=== PATIENT | female | born 2000 | race Caucasian/White ===

== ENCOUNTER 2023-11-25 10:22 | Inpatient (IN) | payer OTHER ==
[~2023-11-25] VITALS: Ht 170.2 cm; Wt 110.9 kg
[2023-11-25] VITALS (11 sets, daily range): BP systolic 117–131; BP diastolic 67–81; PULSE 74–87; TEMP 98–99
--- NOTE | 2023-11-25 11:15 | NUR ---
1030 PATIENT HERE FROM OFFICE WITH COMPLAINTS OF CONTRACTIONS GETTING MORE INTENSE. SVE IN OFFICE STRETCHY 4. EFM ON GHT 135 BABY VERY ACTIVE. CONTRACTIONS EVERY 2-3 MIN PALPATE FIRM. PATIENT REFUSES EPIDURAL, ANTIBIOTICS FOR GBS, PITOCIN, REFUSES VIT K, ERYTHROMYCIN OINTMENT, HEP B FOR BABY. DENIES OTHER NEEDS. ASSESSMENT COMPLETED AT THIS TIME. WILL RECHECK A HOUR FROM ODDICR CHECK.
--- NOTE | 2023-11-25 11:27 | NUR ---
1115 SVE /1 SOME BLOODY SHOW NOTED ON GLOVE. FHT 130 WITH EARLIES NOTED WITH CONTRACTIONS. REPORT GIVEN TO Tami NICHOLSON RN TO ASSUME CARE AT THIS TIME
[2023-11-25] MEDS ORDERED: LR 1,000 ML IV SCH (11:30)
[2023-11-25] MEDS ORDERED: Penicillin G Potassium 5,000,000 UNITS in NS 100 ML IV ONE (11:30)
--- NOTE | 2023-11-25 12:22 | NUR ---
1220 PATIENT AND WALKING HALLS AT THIS TIME
[2023-11-25 12:29] LABS: BASO % 0.4 % (0.0-2.0); EOS % 0.4 % (0.0-4.0); GRAN # 6.7 K/mm3 (1.4-6.5); GRAN % 71.8 % (42.2-75.2); HEMATOCRIT 39.3 % (37.0-47.0); HEMOGLOBIN 13.1 g/dl (12.5-16.0); LYMPH # 1.9 K/mm3 (1.2-3.4); LYMPH % 20.6 % (20.0-51.0); MEAN CELL VOLUME 86 fl (80.0-100.0); MEAN CORPUSCULAR HEMOGLOBIN 29 pg (27-31); MEAN CORPUSCULAR HGB CONC 33 g/dl (33.0-37.0); MEAN PLATELET VOLUME 11.1 fl (7.4-10.4); MONO # 0.6 K/mm3 (0.1-0.6); MONO % 6.3 % (1.7-9.3); PLATELET COUNT 204 K/mm3 (130-400); RED BLOOD COUNT 4.56 M/mm3 (4.10-5.30); REDCELL DISTRIBUTION WIDTH-CV 13.2 % (11.5-14.5)
--- NOTE | 2023-11-25 14:13 | NUR ---
Dr. Michaels to bedside to check in with patient. Discussed ROM with pt, she delcines at this time. Consents then discussed with pt, pt verbalizes understanding and signs. Refusals discussed and signed for antibiotics for GBS and Rhogam, provided pt with information regarding RH Isoimmunization and informed pt she may change her mind at any time. Pt verbalized understanding, continues to refuse at this time. Pt provided plan, copies made and placed in her and baby's chart. Pt requesting to move around room and walk around unit, discussed need to monitor FHR for 20 mins every hour. Pt agrees. FHR monitor removed at 1345, pt up and ambulating around room. Pt ambulating halls at 1400.
--- NOTE | 2023-11-25 14:20 | NUR ---
FHR not recorded at this time, pt ambulating in hallway
--- NOTE | 2023-11-25 14:29 | NUR ---
early decel noted at 1316. late decel noted at 1311. dr kelsey on unit at this time, stated that FHR is reassuring at this time
--- NOTE | 2023-11-25 15:25 | NUR ---
Late decels noted at 1452 and 1456, this RN at bedside. SVE with pt permission at 1500, 5-6/100/-1. Membranes intact, bloody show noted. Pt repositioned LL following exam. Late decels resolved.
[2023-11-25] MEDS ORDERED: Penicillin G Potassium 2,500,000 UNITS in NS 100 ML IV SCH (15:30)
--- NOTE | 2023-11-25 17:40 | NUR ---
FHR not monitored at this time, pt ambulating in room
--- NOTE | 2023-11-25 17:42 | NUR ---
Pt back on monitors at 1621. Late decels noted after contractions at 1632, 1640, and 1648. Repositioned pt RL, remained at bedside. Contractions not tracing well at this time, however, late decels resolved. Early decel with contraction at 1720. SVE with pt permission at 1730, 6-7100/0. Pt questions regarding AROM answered, pt still considering this option.
--- NOTE | 2023-11-25 17:42 | NUR ---
FHR not monitored at this time, pt ambulating in room
--- NOTE | 2023-11-25 19:15 | NUR ---
1840: Pt placed on monitors at this time for tracing. Pt standing next to bed for comfort. Pt informed Dr Flor notified of pt wanting to rupture membranes at this time. 1904: Dr Flor at the bedside discussing AROM with pt and spouse. Questions asked and answered. 1908: AROM performed with moderate meconium fluid noted. Pt tolerated fair. 0: Pt tilted slightly to the left for a bit for comfort. Will monitor fetus for a bit longer and then let pt shower.
--- NOTE | 2023-11-25 19:40 | NUR ---
Pt ambulating in hallway at this time for comfort. Spouse at side for support. Pt reporting she is feeling okay at this time and not feeling many ctx.
--- NOTE | 2023-11-25 20:40 | NUR ---
2018: Pt placed on monitors at this time, is standing next to bed for comfort during the ctx. Pt reports needing to move frequently to help with the pain from the ctx. 2034: lets this RN know that the pt is feeling more pressure with the last ctx. Dr Flor to the bedside for ROBBI.
--- NOTE | 2023-11-25 21:50 | NUR ---
2126: Pt placed on monitors, is standing next to the bed rocking back and forth coping with ctx well. Spouse at pt side for support. 2149: Pt off the monitors, in the bathroom.
--- NOTE | 2023-11-25 22:05 | NUR ---
Pt in the bathroom at this time, vomiting into toilet at this time. Bile color emesis noted. Spouse supporting pt. Pt reports to this RN that she is not feeling any pressure or urge to push at this time, just the discomfort from the ctx when she has one. Pt getting into the shower with spouse at her side.
[2023-11-25] MEDS ORDERED: ROPivacaine PF 0.2% 200 ML IV ONE (23:03)
--- NOTE | 2023-11-25 23:15 | NUR ---
Pt on her hands and knees on the bed at this time for comfort during her ctx. RN at bedside attempting to obtain heart tones and ctx pattern. Unable to obtain due to maternal position and movement. RN remains at bedside monitoring maternal and status.
--- NOTE | 2023-11-25 23:30 | NUR ---
Pt sitting upright on the side of the bed at this time for epidural placement. RN at bedside. Unable to determine baseline, accels, or decels during this tracing due to maternal position.
[2023-11-25] MEDS ORDERED: Ondansetron 4 MG/2 ML VIAL IV PRN (23:45)
[2023-11-25] MEDS ORDERED: diphenhydrAMINE 50 MG/ML 1 ML VIAL IV PRN (23:45)
[2023-11-25] MEDS ORDERED: diphenhydrAMINE 25 MG CAP PO PRN (23:45)
[2023-11-25] MEDS ORDERED: Naloxone 0.4 MG/ML VIAL IV PRN (23:45)
[2023-11-25] MEDS ORDERED: ePHEDrine 50 MG/10 ML VIAL IV PRN (23:45)
--- NOTE | 2023-11-25 23:45 | NUR ---
3 minute prolonged late decel observed during this tracing, RN at bedside and repositions pt to her left side to attempt recovery. Good recovery and variability observed and after 7-8 minutes pt repositioned for comfort. Pt reports being comfortable with her epidural at this time. Roles on the unit and aware of decel.
[2023-11-26] VITALS (24 sets, daily range): BP systolic 98–146; BP diastolic 60–81; PULSE 67–123; TEMP 97.8–98.3
--- NOTE | 2023-11-26 | NUR ---
Late and variable decels observed on this tracing. Pt repositioned in an attempt to correct decels. RN unable to determine heart rate baseline due to variability and accels.
--- NOTE | 2023-11-26 00:15 | NUR ---
Pt repositioned to her right side after a late decel. Good recovery observed but another late decel observed while at the bedside and pt repositioned back to her left side. RN remains at bedside.
--- NOTE | 2023-11-26 00:30 | NUR ---
Pt repositioned to her left side with her right leg in a stirrup to facilitate descent. I have difficulty obtaining heart tones due to this position and remain at the bedside monitoring maternal and status.
--- NOTE | 2023-11-26 01:30 | NUR ---
RN at the bedside pushing with pt; due to maternal position, RN having difficulty tracing heart tones. RN remains at bedside during this time.
--- NOTE | 2023-11-26 03:01 | NUR ---
0301: Live male infant delivered via . Infant bulb suctioned and dried by Dr Flor and placed on mothers abdomen. Nursery RN continues to dry as delayed cord clamping is done per parents request. 0310: Cord clamped by Dr Flor and cut by father at this time. then place skin to skin with mother. 0313: Placenta delivered spontaneously. Pt refuses stitches at this time to repair the 2nd degree perineal laceration. Educated on adverse effects from not repairing the laceration and pt verbalizes her understanding.
[2023-11-26] MEDS ORDERED: Mag/Al Hydrox/Simeth Susp 30 ML CUP PO PRN (03:30)
[2023-11-26] MEDS ORDERED: Magnes Hydrox (MOM) 80 MG/ML 30 ML CUP PO PRN (03:30)
[2023-11-26] MEDS ORDERED: Acetaminophen 500 MG TAB PO SCH (03:30)
[2023-11-26] MEDS ORDERED: Naloxone 0.4 MG/ML VIAL IV PRN (03:30)
[2023-11-26] MEDS ORDERED: Phenylephrine/Mineral Oil/Petrolatum 57 GM TUBE RC PRN (03:30)
[2023-11-26] MEDS ORDERED: Ibuprofen 800 MG TAB PO SCH (03:30)
[2023-11-26] MEDS ORDERED: Witch Hazel 50% Pads Bulk TUB TP PRN (03:30)
[2023-11-26] MEDS ORDERED: oxyCODONE 5 MG TAB PO PRN (03:30)
[2023-11-26] MEDS ORDERED: Loratadine 10 MG TAB PO PRN (03:30)
[2023-11-26] MEDS ORDERED: Sennosides/Docusate 8.6-50 MG TAB PO SCH (08:00)
[2023-11-26] MEDS ORDERED: Rho(D) Imm Globulin 1,500 UNITS (300 MCG)/2 ML SYRINGE IV\\IM SCH (15:00)
[2023-11-26] MEDS ORDERED: traZODone 50 MG TAB PO PRN (21:00)
[2023-11-27 03:25] VITALS: BP 114/62; PULSE 70; TEMP 97.7
[2023-11-27 08:00] VITALS: BP 110/54; PULSE 78; TEMP 98.6
--- NOTE | 2023-11-27 13:35 | NUR ---
Initial visit; Parents thanked Range Manager for offering congratulations and God's blessings for the of their son. Range Manager thanked family for choosing our hospital.
[2023-11-27 20:55] VITALS: BP 121/74; PULSE 90; TEMP 97.9
[2023-11-28] MEDS ORDERED: MOTRIN 800800 MG/TAB PO (07:58)
[2023-11-28 08:00] VITALS: BP 115/70; PULSE 61; TEMP 97.8
--- NOTE | 2023-11-28 08:00 | NUR ---
Rests in bed, alert. Denies any discomfort or needs at this time.
== END 2023-11-28 10:08 | disposition home or self-care (01) | DRG 807 ==
LOC: LDRO 10:22 → LDR 10:30 → OB 11-26 06:00
PROVIDERS: ADMIT Obstetrics & Gynecology
PROC: 10E0XZZ Delivery of Products of Conception, External Approach (ICD-10-PCS; principal; 2023-11-26)
PROC: 10907ZC Drainage of Amniotic Fluid, Therapeutic from Products of Conception, Via Natural or Artificial Opening (ICD-10-PCS; 2023-11-26)
DX: O48.0 Post-term pregnancy (principal); Z37.0 Single live birth; O77.0 Labor and delivery complicated by meconium in amniotic fluid; O99.284 Endocrine, nutritional and metabolic diseases complicating childbirth; E28.2 Polycystic ovarian syndrome; J45.909 Unspecified asthma, uncomplicated; O99.52 Diseases of the respiratory system complicating childbirth; O62.1 Secondary uterine inertia; O26.893 Other specified pregnancy related conditions, third trimester; O99.214 Obesity complicating childbirth; O99.824 Streptococcus B carrier state complicating childbirth; O24.420 Gestational diabetes mellitus in childbirth, diet controlled; O70.1 Second degree perineal laceration during delivery; O76 Abnormality in fetal heart rate and rhythm complicating labor and delivery; Z67.41 Type O blood, Rh negative; Z3A.40 40 weeks gestation of pregnancy
CPT/HCPCS: J2791; J2795; J7120